=== PATIENT | male | born 1990 | race Caucasian/White ===

== ENCOUNTER 2021-05-24 21:43 | Emergency (ER) | payer MEDICAID ==
[~2021-05-24] VITALS: Ht 185.4 cm; Wt 85.7 kg
[2021-05-24 22:48] VITALS: BP_SYST 124
--- NOTE | 2021-05-25 04:10 | NUR ---
Patient to ER bed 7 to gown for evaluation. Side rails up.
--- NOTE | 2021-05-25 04:11 | NUR ---
Patient came to ER. C/O Medical clearance x today. Patient states "worms came out from my testicles"
--- NOTE | 2021-05-25 04:13 | NUR ---
ER at bedside examining patient.
[2021-05-25 04:35] VITALS: BP_SYST 124
--- NOTE | 2021-05-25 04:35 | NUR ---
Patient given written and verbal discharge instructions and verbalizes understanding. ER MD discussed with patient the results and treatment provided. Patient in stable condition. ID arm band removed. NO Rx given. Patient educated on pain management and to follow up with PMD. Pain Scale 0/10. Opportunity for questions provided and answered.
== END 2021-05-25 04:35 | disposition home or self-care (01) ==
LOC: SED 21:43
DX: F22 Delusional disorders (principal); F15.90 Other stimulant use, unspecified, uncomplicated
CPT/HCPCS: 99281

== ENCOUNTER 2022-04-29 23:50 | Emergency (ER) | payer MEDICAID ==
[~2022-04-29] VITALS: Ht 185.4 cm; Wt 99.8 kg
--- NOTE | 2022-04-30 00:56 | NUR ---
Patient provided gown and ambulated to bed 5 without difficulty. Per patient, patient feels "moistness in rectum, like a discharge" for aprox 2 months. Patient states he also feels things coming from skin and pointed to area on left calf, nothing noted at this time. Patient states he was in retirement for aprox four months last year but did not have these complaints at that time.
[2022-04-30 01:21] VITALS: BP_SYST 135
--- NOTE | 2022-04-30 03:21 | NUR ---
pt left without discharge documents accompanied by girlfriend
--- NOTE | 2022-04-30 03:35 | NUR ---
Patient given written and verbal discharge instructions and verbalizes understanding. ER MD discussed with patient the results and treatment provided. Patient in stable condition. ID arm band removed. IV catheter removed intact and dressing applied, no active bleeding. Rx of n/a given. Patient educated on pain management and to follow up with PMD. Pain Scale . Opportunity for questions provided and answered. Medication side effect fact sheet provided. Patient left against medical advice and without recieving paperwork.
== END 2022-04-30 03:34 | disposition home or self-care (01) ==
LOC: SED 23:50
DX: Z00.00 Encounter for general adult medical examination without abnormal findings (principal); R21 Rash and other nonspecific skin eruption; R03.0 Elevated blood-pressure reading, without diagnosis of hypertension
CPT/HCPCS: 99281